=== PATIENT | female | born 1960 | race Caucasian/White ===

== ENCOUNTER 2021-10-02 18:58 | Emergency (ER) | payer OTHER ==
[~2021-10-02] VITALS: Ht 149.9 cm; Wt 62.6 kg
[2021-10-02 19:33] VITALS: BP_SYST 139
[2021-10-02 21:03] LABS: CORRECTED WHITE BLOOD COUNT 8.2 K/uL (4.5-11.0)
[2021-10-02 21:04] LABS: HEMATOCRIT 42.2 % (36-48); HEMOGLOBIN 14.8 g/dL (12.0-16.0); MEAN CORPUSCULAR HEMOGLOBIN 29 pg (27-31); MEAN CORPUSCULAR HGB CONC 34 % (32-36); MEAN CORPUSCULAR VOLUME 83 fL (79.0-98.0); RED BLOOD CELL COUNT(AUTO) 5.17 MIL/uL (4.2-6.2); RED CELL DISTRIBUTION WIDTH 13.2 % (9.0-15.0)
[2021-10-02 21:05] LABS: BASOPHILS % (AUTO) 0.5 % (0.0-2.0); EOSINOPHILS # (AUTO) 0.1 K/uL (0.0-0.4); LYMPHOCYTES # (AUTO) 1.1 K/uL (1.0-5.5); LYMPHOCYTES % (AUTO) 13.4 % (20.5-51.5); MONOCYTES # (AUTO) 0.5 K/uL (0.0-1.0); MONOCYTES % (AUTO) 6.2 % (1.7-9.3); NEUTROPHILS # (AUTO) 6.5 K/uL (1.8-7.7); NEUTROPHILS % (AUTO) 78.9 % (40.0-70.0); PLATELET COUNT (AUTO) 226 K/uL (130-430)
[2021-10-02 21:23] LABS: ANION GAP 9 (5-15); CALCIUM 9.7 mg/dL (8.4-11.0); CHLORIDE 98 mmol/L (98-107); CREATININE 0.84 mg/dL (0.55-1.30); GLUCOSE 333 mg/dL (70-99); POTASSIUM 4.3 mmol/L (3.5-5.1); SODIUM SERUM 134 mmol/L (136-145); UREA NITROGEN, BLOOD 15 mg/dL (8-21)
[2021-10-02 21:37] LABS: ALANINE AMINOTRANSFERASE 23 U/L (12-78); ALBUMIN 3.3 g/dL (3.4-4.8); AMYLASE 31 U/L (0-100); ASPARTATE AMINOTRANSFERASE 21 U/L (10-37); LACTATE DEHYDROGENASE 170 U/L (81-234); LIPASE 77 U/L (73-393); TOTAL BILIRUBIN 0.5 mg/dL (0.0-1.0)
[2021-10-02 21:43] LABS: C-REACTIVE PROTEIN QUANT < 0.2 mg/dL (0-0.5); GFR AFRICAN AMERICAN 88 mL/min (>90)
[2021-10-02] MEDS ORDERED: IBUP-1969 PO (22:04)
[2021-10-02] MEDS ORDERED: HYDR-3917 PO (22:04)
[2021-10-02] MEDS ORDERED: OMEP20CA15 PO (22:21)
[2021-10-02 22:45] VITALS: BP_SYST 141
[2021-10-02 22:58] LABS: WHITE BLOOD COUNT (AUTO) 8.2 K/uL (4.8-10.8)
== END 2021-10-02 22:42 | disposition home or self-care (01) ==
LOC: SED 18:58
DX: K80.50 Calculus of bile duct without cholangitis or cholecystitis without obstruction (principal); K80.80 Other cholelithiasis without obstruction; R19.02 Left upper quadrant abdominal swelling, mass and lump; Z79.899 Other long term (current) drug therapy
CPT/HCPCS: 36415; 76376; 80053; 82150; 83605; 83615; 83690; 84484; 85025; 86140; 99284